=== PATIENT | female | born 1975 | race Hispanic/Latino ===

== ENCOUNTER 2021-05-18 08:55 | Outpatient (CLI) | payer OTHER ==
--- NOTE | 2021-05-18 11:13 | XRay Report ---
BILATERAL KNEES STANDING, AP VIEW INDICATION: BILATERAL KNEE PAIN. COMPARISON: None. IMPRESSION: Normal bone mineralization. No acute osseous abnormality or bone lesion. No significant DJD. No significant valgus or varus deformity. The soft tissues are unremarkable. Signer Name: Carlos Yarbrough Jr, MD Signed: 05/18/2021 11:09 AM Workstation Name: [id number]
== END 2021-05-18 08:56 | disposition home or self-care (01) ==
LOC: XRAY 08:55
PROVIDERS: ATTEND Internal Medicine
DX: M25.562 Pain in left knee (principal); M25.561 Pain in right knee
CPT/HCPCS: 73565

== ENCOUNTER 2021-06-16 09:40 | Outpatient (CLI) | payer OTHER ==
[2021-06-16 11:05] LABS: Alanine Aminotransferase 51 units/L (7-56); Albumin 4.6 g/dL (3.9-5); Blood Urea Nitrogen 9 mg/dL (7-17); Calcium 9.6 mg/dL (8.4-10.2); Hemolysis Index 7
[2021-06-16 11:13] LABS: BUN/Creatinine Ratio 18
== END 2021-06-16 09:41 | disposition home or self-care (01) ==
LOC: LAB 09:40 → XRAY 09:40 → LAB 09:41
PROVIDERS: ATTEND Internal Medicine
DX: Z02.71 Encounter for disability determination (principal)
CPT/HCPCS: 36415; 80053

== ENCOUNTER 2021-09-30 14:01 | Emergency (ER) | payer MEDICAID, OTHER ==
[2021-09-30] MEDS ORDERED: IBUPROFEN 800 MG TAB PO ONE (14:22)
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
[2021-09-30] MEDS ORDERED: CYCLOBENZAPRINE 10 MG TAB PO ONE (21:27)
[2021-09-30] MEDS ORDERED: ACETAMINOPHEN 500 MG TAB PO ONE (21:27)
[2021-09-30] MEDS ORDERED: IBUPROFEN 600 MG TAB PO ONE (21:27)
[2021-09-30 22:41] VITALS: BP 117/87
== END 2021-09-30 21:45 | disposition home or self-care (01) ==
LOC: ED 14:01
DX: S16.1XXA Strain of muscle, fascia and tendon at neck level, initial encounter (principal); M62.838 Other muscle spasm; F17.200 Nicotine dependence, unspecified, uncomplicated; I10 Essential (primary) hypertension; R51.9 Headache, unspecified; V89.2XXA Person injured in unspecified motor-vehicle accident, traffic, initial encounter; Y93.89 Activity, other specified; Y92.89 Other specified places as the place of occurrence of the external cause; Y99.8 Other external cause status
CPT/HCPCS: 72040; 99283